=== PATIENT | male | born 1950 ===

== ENCOUNTER 2018-01-26 13:57 | Inpatient (IN) | payer OTHER ==
[2018-01-26] MEDS ORDERED: clonazePAM 1 MG TAB PO PRN (15:25)
--- NOTE | 2018-01-26 16:54 | GHP ---
POST ADMISSION PHYSICIAN EVALUATION AND REHABILITATION TREATMENT PLAN. DATE OF ADMISSION: 01/26/2018 DATE OF EVALUATION: 01/26/2018 REFERRING FACILITY: [facility]. IMPAIRMENT GROUP: [id number]. Etiologic diagnosis is other nontraumatic spinal cord dysfunction. DATE OF ONSET: 01/22/2018. REFERRING PHYSICIAN: Dr. Wallace. CONSULTING PHYSICIANS: He was managed by the Pulmonary and Critical Care Service. REHABILITATION DIAGNOSIS: Left C5 nerve palsy following cervical spine surgery. DATE OF SURGERY: 01/22/2018. HISTORY OF PRESENT ILLNESS: This patient came to [facility] for an elective C3-6 anterior cervical decompression and fusion, C3-T1 posterior cervical fusion, and C3-7 laminectomies for cervical stenosis and myelopathy. In the course of his surgery, he developed a left C5 nerve root palsy with weakness to the biceps and deltoid on the left. Otherwise, he had pain controlled. He was maintained with an elevated mean arterial pressure for a period of time to optimize perfusion to the spine and the injured nerve root. He was otherwise medically stable and ready for rehabilitation. STUDIES AND LABS: Postoperatively on 01/23/2018, BMP showed a slightly high glucose at 137, but was otherwise within normal limits. A CBC on 01/24/2018, showed slight anemia with a hemoglobin of 12.5 and a hematocrit of 38.4. He had an elevated white blood cell count at 12, that was predominantly neutrophils at 10.38. Platelet count was 187. Postoperative x-ray showed good alignment and intact hardware. PRECAUTIONS: He has orthopedic precautions for his neck. ACTIVE COMORBIDITIES: He has no tier 1, tier 2 or tier 3 comorbidities. PAST MEDICAL HISTORY: 1. Anxiety and depression. 2. Hypothyroidism. 3. Left pneumothorax in 1975. PAST SURGICAL HISTORY: 1. He has had a left hernia repair. 2. Bilateral knee replacements. PRESHOSPITAL MEDICATIONS: 1. Buspirone 30 mg p.o. b.i.d. 2. Levothyroxine 25 mcg p.o. daily. 3. Tamsulosin 0.4 mg p.o. daily. 4. Venlafaxine 75 mg p.o. twice daily. 5. Ibuprofen 400 mg p.o. q.6 hours p.r.n. 6. Metamucil at h.s. ADMISSION MEDICATIONS: 1. Acetaminophen 1000 mg p.o. q.8 hours p.r.n. 2. Buspirone 30 mg p.o. b.i.d. 3. Clonazepam 5 mg p.o. q.6 hours p.r.n. spasms. 4. Dexamethasone on a taper. 5. Levothyroxine 25 mcg p.o. daily. 6. Melatonin 6 mg p.o. q.h.s. 7. Oxycodone 5 to 10 mg p.o. q.4 hours p.r.n. 8. Senna/docusate 1 tab p.o. b.i.d. 9. Tamsulosin 0.4 mg p.o. daily. 10. Venlafaxine 150 mg p.o. b.i.d. ALLERGIES: There is an allergy listed to sulfa antibiotics. PSYCHOSOCIAL HISTORY: He is . He lives alone. There are 4 steps to enter the house and a flight of steps to reach his upstairs bedroom. He is an occasional cigarette smoker and he drinks 2-4 beers a day at home. FAMILY HISTORY: His mother had heart disease, atrial fibrillation, and a mitral valve replacement. His father had heart disease. REVIEW OF SYSTEMS: He reports his sleep has been interrupted by frequent urination, but that he gets back to sleep easily. His pain has been adequately controlled. He thinks he has some difficulty with swallowing water and sometimes coughs when he swallows water. He does not have dyspnea. There are no fevers or chills. There is no nausea, vomiting, or diarrhea. He has constipation for 3 days. He denies abdominal pain. He denies dysuria. He denies joint pain or joint swelling. He denies skin rash or skin breakdown. He is in good spirits. Otherwise a 10-point review of systems is negative. PHYSICAL EXAM: VITALS: Blood pressure is 145/91, heart rate is 63, respiratory rate is 14, oxygen saturation is 91% on room air. Temperature is 36.4 degrees centigrade. His weight is 85 kg for a body mass index of 26.9. GENERAL: This is a well-nourished, well-developed man, dressed in street clothes, lying in bed. Cooperative and in no acute distress. HEENT: Extraocular movements are intact. Pupils are equal, round, reactive to light. Mucous membranes are moist. Dentition is in good condition. NECK: Supple. HEART: There is a regular rate and rhythm with no murmurs, rubs, or gallops. LUNGS: He has subtle expiratory rhonchi in the right lower lobe. Otherwise, lungs are clear to auscultation bilaterally. ABDOMEN: Soft, nontender, nondistended with normoactive bowel sounds and no hepatosplenomegaly. EXTREMITIES: There is no cyanosis, clubbing, or edema. Radial and dorsalis pedis pulses are 2+ bilaterally. NEUROLOGIC: He is alert and oriented x3. Cranial nerves 2-12 grossly intact. His left upper extremity has marked weakness at the biceps and deltoid. He has triceps extension and hand produce department manager and wrist flexion and extension. Otherwise, his strength is 5/5 overall. Sensation is intact to light touch, though he has neuropathic tingling in his left arm and reduced sensation bilaterally in his fingers. Deep tendon reflexes are 2+ bilaterally at the biceps, patellar, and Achilles tendons. SKIN : His incisions are glued. Dressings are clean, except on the lower part of the dressing over his posterior incision where his SARAHI drain site is, there was slight serous drainage. There is no erythema and no purulence. QUINTERO IT LEVEL OF FUNCTION per the pre-admission screen: regarding diet, feeding , and swallowing:, he is on a regular diet. He needed assistance for grooming, dressing, and toileting. Bed mobility required moderate assist x2 people. Transfers required maximal assist of 2 people. He was using a front-wheeled walker. Seated balance was fair and his standing balance was poor. His endurance was fair. Gait was not tested as he was unsteady. Communication and cognition were considered to be normal. He had ataxia to the left lower extremity with decreased sensation and proprioception. On today's exam, there are no significant changes from the preadmission screen. IMPRESSION: This patient is a 67-year-old man who had an elective cervical spinal surgery with C3-6, ACDF, and C3-T1 PSF. He suffered an injury to the left C5 nerve root and has weakness of the left biceps and deltoid. He also has a proprioceptive deficit to the left lower extremity and so has debility requiring rehabilitation services. His goal is to complete a rehabilitation stay and then return home where he will have some assistance from his ex-, but otherwise will be living alone. For a safe discharge, he will need to achieve independence with eating and modified independence for activities of daily living and functional tasks. He will use a front-wheeled walker and be able to negotiate steps with the use of a cane. He will likely require assistance for shopping, driving, meal preparation, and household management. He will have therapy with Physical Therapy and Occupational Therapy, and I am adding Speech and Language Pathology due to his report of difficulty with swallowing. These therapies will happen for 1 hour each day on 5-7 days of the week. His expected duration of stay is 10-14 days. It is anticipated that upon discharge, he will continue to benefit from home health services including Nursing, a nurse's aide, Occupational Therapy, and Physical Therapy. PLAN: 1. Debility and left upper extremity weakness status post C3-6 ACDF and C3-T1 PSF with left C5 nerve root palsy. PT and OT to optimize mobility and activities of daily living toward the independent to modified level for discharge home. He will also need to be able to climb stairs. 2. Difficulty with swallowing thin liquids. He will have assessment per Speech and Language Pathology. 3. Pain management. Continue medications ordered out of the hospital with oxycodone 5-10 mg p.o. q.4 hours p.r.n. and acetaminophen 1000 mg p.o. q.8 hours p.r.n. Clonazepam has been prescribed for spasms. He reports he has not had spasms and I will discontinue the clonazepam. 4. He is on a dexamethasone taper to reduce postsurgical swelling. 5. Hypothyroidism, continue levothyroxine. 6. Anxiety and depression. Continue buspirone and venlafaxine. 7. Benign prostatic hypertrophy. Continue tamsulosin. Given his urinary frequency overnight, will check a postvoid residual to assure that he is emptying his bladder completely. 8. Prophylaxis. He has much reduced mobility. Continue enoxaparin at a prophylactic dose as ordered out of the hospital. This can be discontinued when his mobility improves. FOLLOWUP: He should see neurosurgeon, Dr. Wallace, in followup 2-3 weeks after his surgery, which would be as soon as 02/05/2018, or as late as 02/12/2018. These followups can happen after his discharge from inpatient rehabilitation. Per hospital notes, his primary care physician is Dr. Neymar Li MD. /[id number]/MODL MTDD
[2018-01-26] MEDS: DEXAMETHASONE 4 MG TAB PO SCH (18:10)
[2018-01-26] MEDS: oxyCODONE IR 5 MG TAB PO PRN ×2 (18:13→22:56)
[2018-01-26] MEDS: VENLAFAXINE XR 75 MG CAP PO SCH (21:05)
[2018-01-26] MEDS: MELATONIN 3 MG TAB PO PRN (21:05)
[2018-01-26] MEDS: ACETAMINOPHEN 500 MG TAB PO PRN (21:05)
[2018-01-26] MEDS: busPIRone 15 MG TAB PO SCH (21:05)
[2018-01-26] MEDS: PSYLLIUM METAMUCIL 1 PKT PO SCH (21:05)
[2018-01-26] MEDS: SENNOSIDES/DOCUSATE SODIUM TAB PO SCH (21:06)
[2018-01-27] MEDS: oxyCODONE IR 5 MG TAB PO PRN ×3 (00:07→21:09)
[2018-01-27] MEDS: LEVOTHYROXINE 25 MCG TAB PO SCH (05:42)
[2018-01-27] MEDS: SENNOSIDES/DOCUSATE SODIUM TAB PO SCH ×2 (08:39→21:09)
[2018-01-27] MEDS: DEXAMETHASONE 4 MG TAB PO SCH ×2 (08:39→17:51)
[2018-01-27] MEDS: ACETAMINOPHEN 500 MG TAB PO PRN (08:39)
[2018-01-27] MEDS: TAMSULOSIN HCL 0.4 MG CAP PO SCH (08:39)
[2018-01-27] MEDS: busPIRone 15 MG TAB PO SCH ×2 (08:40→21:08)
[2018-01-27] MEDS: VENLAFAXINE XR 75 MG CAP PO SCH ×2 (08:45→21:08)
[2018-01-27] MEDS ORDERED: Herbals/Supplements -Info Only PO SCH (09:00)
[2018-01-27] MEDS ORDERED: NS W/ 20 KCl/L 1,000 ML IV SCH (11:15)
--- NOTE | 2018-01-27 11:29 | PDOREHIP ---
Admission [facility] - Admission - 3 Day Assessment Period Admission Date/Day 1: 01/26/18 Day 2: 01/27/18 Day 3: 01/28/18 - Active Diagnoses Comorbidities and Co-existing Conditions at Admission: 18796. None of the Above - Skin Conditions Unhealed Pressure Ulcer (1 or more/Stage 1 or >)-Admission: 0. No
--- NOTE | 2018-01-27 11:29 | SOAPPROG ---
SOAP Progress Note Assessment/Plan: Assessment: Debility and left upper extremity weakness status post C3-6 ACDF and C3-T1 PSF with left C5 nerve palsy. PT and OT to optimize mobility and activities of daily living toward the independent to modified level for discharge home. He will also need to be able to climb stairs. Difficulty with swallowing thin liquids. He will have assessment per Speech and Language Pathology. Orthostatic hypotension. Possibly due to dehydration. Will hydrate with normal saline +20 mEq per L of potassium at 1:20 a.m. 5 cc an hour. Recheck orthostatics after several hours. * If no improvement he may have autonomic nervous system dysfunction due to compressive cervical myelopathy. Continue dexamethasone taper to reduce postsurgical swelling. Benign prostatic hypertrophy. Continue tamsulosin. Postvoid residuals have been measured at 100 - 185 cc, not high enough to consider catheterization. He might benefit from increasing tamsulosin but will await resolution of orthostatic hypotension. He may have bladder instability related to autonomic dysfunction from cervical compressive myelopathy. * Trial of condom catheter to improve sleep tonight 01/27/2018. Pain management. Continue medications ordered out of the hospital with oxycodone 5-10 mg p.o. q.4 hours p.r.n. and acetaminophen 1000 mg p.o. q.8 hours p.r.n. Clonazepam was prescribed for spasms was discontinued on admission to inpatient rehabilitation as he reported he has not had any spasms. Hypothyroidism, continue levothyroxine. Anxiety and depression. Continue buspirone and venlafaxine. Prophylaxis. He has much reduced mobility. Continue enoxaparin at a prophylactic dose as ordered out of the hospital. This can be discontinued when his mobility improves. FOLLOWUP: He should see neurosurgeon, Dr. Wallace, in followup 2-3 weeks after his surgery, which would be as soon as 02/05/2018, or as late as 02/12/2018. These followups can happen after his discharge from inpatient rehabilitation. Per hospital notes, his primary care physician is Dr. Neymar Li MD. 01/27/18 13:00 Subjective: [place] dizzy standing up with therapies today and was found to have significant orthostatic hypotension with 30 point drop in systolic blood pressure from sitting to standing. Supine blood pressure was checked subsequently at 135/87, with systolic 58 points higher than standing systolic of 77. He feels thirsty. Nursing has noted coughing with drinking fluids and has initiated thickened liquids. No fevers or chills, no dyspnea. Reports urinary frequency interfering with sleep last night. Objective: Vital Signs Temp Pulse Resp BP Pulse Ox 36.3 C 62 16 107/74 93 01/27/18 06:45 01/27/18 06:45 01/27/18 06:45 01/27/18 10:02 01/27/18 06:45 01/26/18 01/27/18 01/28/18 05:59 05:59 05:59 Intake Total 330 200 Output Total 850 350 Balance -520 -150 Physical Exam - Physical Exam General Appearance: WD/WN, alert, no apparent distress Respiratory: normal breath sounds, No crackles, No rhonchi, No wheezing Cardiac/Chest: regular rate, rhythm, No edema, No systolic murmur Skin: normal color, warm/dry Neuro/Psych: alert, normal mood/affect, oriented x 3, motor weakness (Left upper extremity) ICD10 Worksheet Patient Problems: Problems Problem Status Onset Cervical radiculopathy at C5 Acute H/O cervical spine surgery Acute - ICD10 Problem Qualifiers (1) H/O cervical spine surgery (2) Cervical radiculopathy at C5
[2018-01-27 17:10] LABS: PLATELET COUNT 233 10^3/uL (150-400)
[2018-01-27] MEDS: PSYLLIUM METAMUCIL 1 PKT PO SCH (21:08)
[2018-01-27] MEDS: MELATONIN 3 MG TAB PO PRN (21:08)
[2018-01-28] MEDS: LEVOTHYROXINE 25 MCG TAB PO SCH (05:46)
[2018-01-28] MEDS: oxyCODONE IR 5 MG TAB PO PRN ×2 (05:46→22:12)
[2018-01-28] MEDS: DEXAMETHASONE 2 MG TAB PO SCH ×2 (08:56→17:43)
[2018-01-28] MEDS: SENNOSIDES/DOCUSATE SODIUM TAB PO SCH ×2 (08:56→20:15)
[2018-01-28] MEDS: VENLAFAXINE XR 75 MG CAP PO SCH ×2 (08:56→20:15)
[2018-01-28] MEDS: busPIRone 15 MG TAB PO SCH ×2 (08:56→20:15)
[2018-01-28] MEDS: TAMSULOSIN HCL 0.4 MG CAP PO SCH (08:56)
[2018-01-28] MEDS: ACETAMINOPHEN 500 MG TAB PO PRN ×2 (09:00→17:43)
[2018-01-28] MEDS: PSYLLIUM METAMUCIL 1 PKT PO SCH (20:15)
[2018-01-28] MEDS: MELATONIN 3 MG TAB PO PRN (20:27)
[2018-01-28] MEDS: BISACODYL 10 MG SUPP PR PRN (20:44)
[2018-01-29] MEDS: oxyCODONE IR 5 MG TAB PO PRN ×4 (03:34→17:36)
[2018-01-29] MEDS: LEVOTHYROXINE 25 MCG TAB PO SCH (06:22)
[2018-01-29] MEDS: ACETAMINOPHEN 500 MG TAB PO PRN ×2 (07:36→17:30)
[2018-01-29] MEDS: SENNOSIDES/DOCUSATE SODIUM TAB PO SCH ×2 (08:22→21:10)
[2018-01-29] MEDS: busPIRone 15 MG TAB PO SCH ×2 (08:22→21:11)
[2018-01-29] MEDS: DEXAMETHASONE 2 MG TAB PO SCH ×2 (08:23→17:30)
[2018-01-29] MEDS: TAMSULOSIN HCL 0.4 MG CAP PO SCH (08:23)
[2018-01-29] MEDS: VENLAFAXINE XR 75 MG CAP PO SCH ×2 (08:23→21:10)
--- NOTE | 2018-01-29 13:16 | SOAPPROG ---
SOAP Progress Note Assessment/Plan: 67-year-old male status post a C3 through C6 ACDF and C3 through T1 PS after with Dr. Wallace at [facility] on 01/22/2018 with pre-surgery findings on MRI from 01/05/2018 of mild cord signal changes at C3 and C4 and normal postoperative x-rays on 01/25. Impairments in mobility and self-care with cervical level spinal cord injury, incomplete Today's update: Patient responding well to bowel program, likely has component of neurogenic bowel. Also, not retaining significant urine on tamsulosin, told he has a slightly enlarged prostate in the past, however could be related to chronic spinal cord injury due to cord compression. Given his comorbid orthostatic hypotension today, we are holding the tamsulosin starting tomorrow, also adding leg wraps to the abdominal binder and encouraging aggressive use to prevent orthostatic hypotension. I obtained records from [facility] where an MRI on 01/05/2018 showed mild cord signal changes at C3 and C4 and a normal postoperative x-ray of the C-spine on 01/25. The preoperative spinal cord changes are suggestive of a chronic spinal cord injury, likely a component of neurogenic bowel and bladder. His subjective reports of weakness and sensory changes in his right arm as well as some possibly increased neck pain seems to be counter to the therapists observation of improved function today in the right arm. None the less, we will obtain plain films of the hardware in his cervical spine to ensure stability. If he develops worsening symptoms or has more acute changes would consider CT or MRI of the cervical spine to assess for bleeding or fluid collection. A total of 35 min was spent on the floor in the care of the patient, the majority of which was spent in counseling and coordination of care regarding management strategies for orthostatic hypotension which is likely a result of chronic spinal cord injury and autonomic dysfunction. Additional issues reviewed without change today include ongoing dexamethasone taper, pain management, hypothyroidism, anxiety and depression, prophylaxis. Continue to monitor these issues. 01/29/18 13:12 01/29/18 13:18 Subjective: Chief complaint: Orthostatic hypotension No acute events overnight. Patient denies any new shortness of breath or chest pain, no new numbness, tingling, or weakness. Patient has had therapies impacted by orthostatic hypotension, sometimes severe requiring him to lie down after sitting up. Fluid resuscitation did not particularly help with this. Started doing abdominal binder and stockings. Patient has some neck pain that he feels might be worse, he feels subjectively like the right arm might be weaker and with some sensory changes compared to prior days. Therapy who worked with him today did not notice any changes in affect noticed improvement. He reports that he has a history of some mild BPH, but does not recall where he got that information. He has been responding well to suppositories for bowel movements. Objective: Vital Signs Temp Pulse Resp BP Pulse Ox 36.4 C 66 20 142/97 H 95 01/29/18 07:12 01/29/18 07:12 01/29/18 07:12 01/29/18 07:12 01/29/18 07:12 Laboratory Results 01/27/18 15:30 01/27/18 15:30 01/28/18 01/29/18 01/30/18 05:59 05:59 05:59 Intake Total 1400 1120 Output Total 2455 1225 Balance -1055 -105 Physical Exam - Physical Exam General Appearance: WD/WN, alert, no apparent distress EENT: No scleral icterus (R), No scleral icterus (L) Neck: other (C-spine collar in place, anterior bandage from a surgery) Respiratory: No respiratory distress, No accessory muscle use Skin: normal color, warm/dry, No cyanosis, No diaphoresis Extremities: non-tender, No pedal edema, No calf tenderness, No swelling, No Alessia's sign Neuro/Psych: alert, normal mood/affect (Strength in the right arm was 4/5 in clearance coordinator, 3/5 in elbow flexion, less than antigravity in the shoulder. He felt that sensory to light touch was impaired. Left arm was approximately less than 3 at the elbow flexor, shoulder, he had approximately 3 on clearance coordinator.) ICD10 Worksheet Patient Problems: Problems Problem Status Onset Cervical radiculopathy at C5 Acute H/O cervical spine surgery Acute
[2018-01-29] MEDS ORDERED: ZOLPIDEM TARTRATE 5 MG TAB PO PRN (14:49)
[2018-01-29] MEDS ORDERED: GADOBUTROL 10 ML VIAL IVP ONE (15:37)
[2018-01-29] MEDS ORDERED: traZODone 50 MG TAB PO SCH (21:00)
[2018-01-29] MEDS: PSYLLIUM METAMUCIL 1 PKT PO SCH (21:15)
[2018-01-29] MEDS: PSYLLIUM PO SCH (21:22)
[2018-01-30] MEDS: PSYLLIUM PO SCH ×2 (02:47→20:10)
[2018-01-30] MEDS: oxyCODONE IR 5 MG TAB PO PRN ×4 (03:33→20:09)
[2018-01-30] MEDS: LEVOTHYROXINE 25 MCG TAB PO SCH (05:07)
[2018-01-30] MEDS: ACETAMINOPHEN 500 MG TAB PO PRN ×2 (05:10→18:37)
[2018-01-30] MEDS: SENNOSIDES/DOCUSATE SODIUM TAB PO SCH ×2 (09:10→20:09)
[2018-01-30] MEDS: busPIRone 15 MG TAB PO SCH ×2 (09:10→20:07)
[2018-01-30] MEDS: DEXAMETHASONE 2 MG TAB PO SCH (09:10)
[2018-01-30] MEDS: VENLAFAXINE XR 75 MG CAP PO SCH ×2 (09:10→20:08)
--- NOTE | 2018-01-30 11:29 | SOAPPROG ---
SOAP Progress Note Assessment/Plan: Assessment: Debility and left upper extremity weakness status post C3-6 ACDF and C3-T1 PSF with left C5 nerve palsy. * Initial functional independence measure 76-80 on 01/30/2018. Ambulated 50 ft with a front wheeled walker, contact guard assist. Grooming and hygiene were done seated with minimal assist. Upper body dressing required maximal assist and lower body dressing required minimal assist shower transfer required total assist bathing required minimal assist toilet transfer was done with contact guard to minimal assist OT is concerned about possible right rotator cuff issues. Left upper extremity strength overall was a 2/5 for occupational therapy. * Continue PT and OT to optimize mobility and activities of daily living toward the independent to modified level for discharge home. He will also need to be able to climb stairs. Dysphagia. On dysphagia 1 diet texture with nectar thick liquids. * Ready for trials of dysphagia 2 texture. * Continue MANAGEMENT PROFESSIONAL. Question of dehydration on thickened liquids. Will provide IV hydration again today, 01/30/2018, but will subsequently discontinue his IV. Postoperative fluid collection posterior to cervical spine. Detected on MRI 03/2018 to evaluate increased right arm weakness. * Discussed with Neurosurgery KENDELL Campo, who reviewed images with neurosurgeon Dr. Carter, 01/29/2018. They do not believe that the fluid collection is causing spinal compression or any symptoms. No indication for intervention. Discussed with patient and ex-, 01/30/2018, who agree to not intervene. If it was causing symptoms would have Interventional Radiology drain it. * Still has multilevel moderate to severe bilateral neural foraminal stenosis. Orthostatic hypotension. * Did not improve after hydration. Likely due to autonomic dysfunction from spinal cord injury. * Improved with leg wraps and abdominal binder. Insomnia. Adverse reaction overnight 01/29/2018-01/30/2018 with worsening sleep and panic attacks. May have had excess serotonergic stimulation from venlafaxine; was on 75 mg twice daily prior to hospitalization and discharged on 150 mg twice daily; plus interaction with buspirone and trazodone. Zolpidem did not help. * Decrease venlafaxine to 75 mg twice daily starting 01/30/2018. Discontinue trazodone. * Initiate scheduled temazepam at 15 mg at bedtime starting 01/30/2018, and scheduled melatonin 6 mg at HS which had been ordered as p.r.n.. * Plan to change hypnotics to p.r.n. after several days once his sleep-wake cycle is normalized. Continue dexamethasone taper to reduce postsurgical swelling. Last dexamethasone dose is 01/31/2018. Sleep may improve simply with dexamethasone discontinuation. Benign prostatic hypertrophy verses bladder instability due to spinal cord injury. Continue tamsulosin. Postvoid residuals have been measured at 100 - 185 cc, not high enough to consider catheterization. * Trial of condom catheter to improve sleep. Pain management. Continue medications ordered out of the hospital with oxycodone 5-10 mg p.o. q.4 hours p.r.n. and acetaminophen 1000 mg p.o. q.8 hours p.r.n. Clonazepam was prescribed for spasms was discontinued on admission to inpatient rehabilitation as he reported he has not had any spasms. Hypothyroidism, continue levothyroxine. Anxiety and depression. Continue buspirone and venlafaxine. Prophylaxis. He has much reduced mobility. Continue enoxaparin at a prophylactic dose as ordered out of the hospital. This can be discontinued when his mobility improves. DISPOSITION: Attended staffing, 15 min. Discussed with case management, nursing, dietitian, PT, OT, SL P. Lives alone; has assistance from ex-. Few stairs to enter the home and 12 stairs to 2nd floor but he can live on single-level. Ex- is available to assist. Set tentative discharge date of 02/12/2018. FOLLOWUP: He should see neurosurgeon, Dr. Wallace, in followup 2-3 weeks after his surgery, which would be as soon as 02/05/2018, or as late as 02/12/2018. These followups can happen after his discharge from inpatient rehabilitation. Per hospital notes, his primary care physician is Dr. Neymar Li MD. 01/30/18 11:29 Subjective: Poor and limited sleep last night with irritability and worry. Pain did not interfere. He felt panicked. Refill his right arm is little stronger today than yesterday. Objective: Vital Signs Temp Pulse Resp BP Pulse Ox 36.6 C 91 17 144/86 H 90 L 01/30/18 06:46 01/30/18 06:46 01/30/18 06:46 01/30/18 06:46 01/30/18 06:46 Laboratory Results 01/27/18 15:30 01/27/18 15:30 01/29/18 01/30/18 01/31/18 05:59 05:59 05:59 Intake Total 1120 970 240 Output Total 1225 1550 Balance -105 -580 240 - Time Spent With Patient Time Spent With Patient: Greater than 60 min floor time today, including more than 50% of time in coordination of care during staffing meeting, and counseling patient and ex- . Physical Exam - Physical Exam General Appearance: WD/WN, alert, no apparent distress Respiratory: normal breath sounds, decreased breath sounds (Left lower lung field), crackles (Few, right lower lobe), No rhonchi, No wheezing Cardiac/Chest: regular rate, rhythm, No diastolic murmur, No systolic murmur Skin: normal color, warm/dry Neuro/Psych: alert, normal mood/affect, oriented x 3, motor weakness (Left upper extremity. Right upper extremity with deficit to forward extension at the shoulder.), speech abnormalities (Dysarthria, mild) ICD10 Worksheet Patient Problems: Problems Problem Status Onset Cervical radiculopathy at C5 Acute H/O cervical spine surgery Acute - ICD10 Problem Qualifiers (1) H/O cervical spine surgery (2) Cervical radiculopathy at C5
[2018-01-30] MEDS ORDERED: NS W/ 20 KCl/L 1,000 ML IV SCH (12:00)
[2018-01-30] MEDS: PSYLLIUM METAMUCIL 1 PKT PO SCH (20:07)
[2018-01-30] MEDS: MELATONIN 3 MG TAB PO SCH (20:08)
[2018-01-30] MEDS: TEMAZEPAM 15 MG CAP PO SCH (20:08)
[2018-01-30] MEDS ORDERED: TEMAZEPAM 15 MG CAP PO ONE (21:41)
[2018-01-31] MEDS: oxyCODONE IR 5 MG TAB PO PRN ×4 (00:40→22:38)
[2018-01-31] MEDS: LEVOTHYROXINE 25 MCG TAB PO SCH (04:49)
[2018-01-31] MEDS: SENNOSIDES/DOCUSATE SODIUM TAB PO SCH ×2 (08:01→21:01)
[2018-01-31] MEDS: busPIRone 15 MG TAB PO SCH ×2 (08:01→21:01)
[2018-01-31] MEDS: ACETAMINOPHEN 500 MG TAB PO PRN ×2 (08:01→21:40)
[2018-01-31] MEDS: DEXAMETHASONE 2 MG TAB PO SCH (08:02)
[2018-01-31] MEDS: VENLAFAXINE XR 75 MG CAP PO SCH ×2 (08:02→21:01)
--- NOTE | 2018-01-31 13:43 | SOAPPROG ---
SOAP Progress Note Assessment/Plan: Assessment: Debility and left upper extremity weakness status post C3-6 ACDF and C3-T1 PSF with left C5 nerve palsy. * Initial functional independence measure 76-80 on 01/30/2018. Ambulated 50 ft with a front wheeled walker, contact guard assist. Grooming and hygiene were done seated with minimal assist. Upper body dressing required maximal assist and lower body dressing required minimal assist shower transfer required total assist bathing required minimal assist toilet transfer was done with contact guard to minimal assist OT is concerned about possible right rotator cuff issues. Left upper extremity strength overall was a 2/5 for occupational therapy. * Continue PT and OT to optimize mobility and activities of daily living toward the independent to modified level for discharge home. He will also need to be able to climb stairs. Dysphagia. On dysphagia 1 diet texture with nectar thick liquids. * Ready for trials of dysphagia 2 texture. 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 Question of dehydration on thickened liquids. Will provide IV hydration again today, 01/30/2018, but will subsequently discontinue his IV. Postoperative fluid collection posterior to cervical spine. Detected on MRI 03/2018 to evaluate increased right arm weakness. * Discussed with Neurosurgery KENDELL Campo, who reviewed images with neurosurgeon Dr. Carter, 01/29/2018. They do not believe that the fluid collection is causing spinal compression or any symptoms. No indication for intervention. Discussed with patient and ex-, 01/30/2018, who agree to not intervene. If it was causing symptoms would have Interventional Radiology drain it. * Still has multilevel moderate to severe bilateral neural foraminal stenosis. Orthostatic hypotension. * Did not improve after hydration. Likely due to autonomic dysfunction from spinal cord injury. * Improved with leg wraps and abdominal binder. Insomnia. Adverse reaction overnight 01/29/2018-01/30/2018 with worsening sleep and panic attacks. May have had excess serotonergic stimulation from venlafaxine; was on 75 mg twice daily prior to hospitalization and discharged on 150 mg twice daily; plus interaction with buspirone and trazodone. Zolpidem did not help. * Decreased venlafaxine to 75 mg twice daily starting 01/30/2018. Discontinue trazodone. * Initiate scheduled temazepam at 15 mg at bedtime starting 01/30/2018, and scheduled melatonin 6 mg at HS which had been ordered as p.r.n.. Slept well after 2nd dose of temazepam. Continue scheduled temazepam at HS 15 mg, with a 2nd 15 mg dose p.r.n. * Plan to change hypnotics to p.r.n. after several days once his sleep-wake cycle is normalized. Continue dexamethasone taper to reduce postsurgical swelling. Last dexamethasone dose is 01/31/2018. Sleep may improve simply with dexamethasone discontinuation. Benign prostatic hypertrophy verses bladder instability due to spinal cord injury. Tamsulosin has been held due to orthostatic hypotension.. Postvoid residuals have been measured at 100 - 185 cc, not high enough to consider catheterization. * Trial of condom catheter to improve sleep. Pain management. Continue medications ordered out of the hospital with oxycodone 5-10 mg p.o. q.4 hours p.r.n. and acetaminophen 1000 mg p.o. q.8 hours p.r.n. Clonazepam was prescribed for spasms was discontinued on admission to inpatient rehabilitation as he reported he has not had any spasms. Hypothyroidism, continue levothyroxine. Anxiety and depression. Continue buspirone and venlafaxine. Prophylaxis. He has much reduced mobility. Continue enoxaparin at a prophylactic dose as ordered out of the hospital. This can be discontinued when his mobility improves. DISPOSITION: Lives alone; has assistance from ex-. Few stairs to enter the home and 12 stairs to 2nd floor but he can live on single-level. Ex- is available to assist. Set tentative discharge date of 02/12/2018. FOLLOWUP: He should see neurosurgeon, Dr. Wallace, in followup 2-3 weeks after his surgery, which would be as soon as 02/05/2018, or as late as 02/12/2018. These followups can happen after his discharge from inpatient rehabilitation. Per hospital notes, his primary care physician is Dr. Neymar Li MD. 01/31/18 13:37 Subjective: Slept well last night after 2nd dose of temazepam, and feels much better today. Not in pain. No cough or dyspnea. No fevers or chills. Reports arms or feeling stronger. Objective: Vital Signs Temp Pulse Resp BP Pulse Ox 36.6 C 73 16 115/79 90 L 01/31/18 08:00 01/31/18 08:00 01/31/18 08:00 01/31/18 08:00 01/31/18 08:00 Laboratory Results 01/27/18 15:30 01/27/18 15:30 01/30/18 01/31/18 02/01/18 05:59 05:59 05:59 Intake Total 970 980 Output Total 1550 725 150 Balance -580 255 -150 Physical Exam - Physical Exam General Appearance: WD/WN, alert, no apparent distress Respiratory: No respiratory distress, No accessory muscle use Skin: normal color, warm/dry, other (Incisions examined with nurse yesterday. Clean intact with minimal areas of serous drainage. No erythema.) Neuro/Psych: alert, normal mood/affect, oriented x 3 ICD10 Worksheet Patient Problems: Problems Problem Status Onset Cervical radiculopathy at C5 Acute H/O cervical spine surgery Acute - ICD10 Problem Qualifiers (1) H/O cervical spine surgery (2) Cervical radiculopathy at C5
[2018-01-31] MEDS: ENOXAPARIN 40 MG/0.4 ML SYR SC SCH (18:06)
[2018-01-31] MEDS: MELATONIN 3 MG TAB PO SCH (21:01)
[2018-01-31] MEDS: PSYLLIUM METAMUCIL 1 PKT PO SCH (21:02)
[2018-01-31] MEDS: TEMAZEPAM 15 MG CAP PO SCH (21:05)
[2018-01-31] MEDS: TEMAZEPAM 15 MG CAP PO PRN (22:38)
[2018-02-01] MEDS: oxyCODONE IR 5 MG TAB PO PRN ×5 (02:39→22:41)
[2018-02-01] MEDS: LEVOTHYROXINE 25 MCG TAB PO SCH (06:15)
[2018-02-01] MEDS: busPIRone 15 MG TAB PO SCH ×2 (10:02→21:27)
[2018-02-01] MEDS: SENNOSIDES/DOCUSATE SODIUM TAB PO SCH ×2 (10:03→21:27)
[2018-02-01] MEDS: VENLAFAXINE XR 75 MG CAP PO SCH ×2 (10:03→21:25)
[2018-02-01] MEDS: ENOXAPARIN 40 MG/0.4 ML SYR SC SCH (10:03)
--- NOTE | 2018-02-01 13:50 | SOAPPROG ---
SOAP Progress Note Assessment/Plan: Assessment: Debility and left upper extremity weakness status post C3-6 ACDF and C3-T1 PSF with left C5 nerve palsy. * Initial functional independence measure 68 on 01/30/2018. Ambulated 50 ft with a front wheeled walker, contact guard assist. Grooming and hygiene were done seated with minimal assist. Upper body dressing required maximal assist and lower body dressing required minimal assist shower transfer required total assist bathing required minimal assist toilet transfer was done with contact guard to minimal assist OT is concerned about possible right rotator cuff issues. Left upper extremity strength overall was a 2/5 for occupational therapy. * As of 02/01/2018, ambulating 150 ft several times a day. * Continue PT and OT to optimize mobility and activities of daily living toward the independent to modified level for discharge home. He will also need to be able to climb stairs. Dysphagia. On dysphagia 1 diet texture with nectar thick liquids. * Ready for trials of dysphagia 2 texture. 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 Question of dehydration on thickened liquids. Will provide IV hydration again today, 01/30/2018, but will subsequently discontinue his IV. Postoperative fluid collection posterior to cervical spine. Detected on MRI 03/2018 to evaluate increased right arm weakness. * Discussed with Neurosurgery KENDELL Campo, who reviewed images with neurosurgeon Dr. Carter, 01/29/2018. They do not believe that the fluid collection is causing spinal compression or any symptoms. No indication for intervention. Discussed with patient and ex-, 01/30/2018, who agree to not intervene. If it was causing symptoms would have Interventional Radiology drain it. * Still has multilevel moderate to severe bilateral neural foraminal stenosis. Orthostatic hypotension. * Did not improve after hydration. Likely due to autonomic dysfunction from spinal cord injury. * Improved with leg wraps and abdominal binder. Insomnia. Adverse reaction overnight 01/29/2018-01/30/2018 with worsening sleep and panic attacks. May have had excess serotonergic stimulation from venlafaxine; was on 75 mg twice daily prior to hospitalization and discharged on 150 mg twice daily; plus interaction with buspirone and trazodone. Zolpidem did not help. * Decreased venlafaxine to 75 mg twice daily starting 01/30/2018. Discontinue trazodone. * Initiate scheduled temazepam at 15 mg at bedtime starting 01/30/2018, and scheduled melatonin 6 mg at HS which had been ordered as p.r.n.. Slept well after 2nd dose of temazepam. Continue scheduled temazepam at HS 15 mg, with a 2nd 15 mg dose p.r.n. * Plan to change hypnotics to p.r.n. after several days once his sleep-wake cycle is normalized. Continue dexamethasone taper to reduce postsurgical swelling. Last dexamethasone dose is 01/31/2018. Sleep may improve simply with dexamethasone discontinuation. Benign prostatic hypertrophy verses bladder instability due to spinal cord injury. Tamsulosin has been held due to orthostatic hypotension.. Postvoid residuals have been measured at 100 - 185 cc, not high enough to consider catheterization. * Trial of condom catheter to improve sleep. Pain management. Continue medications ordered out of the hospital with oxycodone 5-10 mg p.o. q.4 hours p.r.n. and acetaminophen 1000 mg p.o. q.8 hours p.r.n. Clonazepam was prescribed for spasms was discontinued on admission to inpatient rehabilitation as he reported he has not had any spasms. Hypothyroidism, continue levothyroxine. Anxiety and depression. Continue buspirone and venlafaxine. Prophylaxis. Much improved mobility. Discontinue enoxaparin, starting 2017. DISPOSITION: Lives alone; has assistance from ex-. Few stairs to enter the home and 12 stairs to 2nd floor but he can live on single-level. Ex- is available to assist. Set tentative discharge date of 02/12/2018. FOLLOWUP: He should see neurosurgeon, Dr. Wallace, in followup 2-3 weeks after his surgery, which would be as soon as 02/05/2018, or as late as 02/12/2018. These followups can happen after his discharge from inpatient rehabilitation. Per hospital notes, his primary care physician is Dr. Neymar Li MD. 02/01/18 13:44 Subjective: Needed the 2nd dose of temazepam to attain sleep last night subsequently was unable to sleep past 6:00 a.m.. Otherwise without complaints. Ambulating more. Has not noticed orthostatic symptoms today. Objective: Vital Signs Temp Pulse Resp BP Pulse Ox 36.8 C 70 15 155/91 H 89 L 02/01/18 07:27 02/01/18 07:27 02/01/18 07:27 02/01/18 07:45 02/01/18 07:27 Laboratory Results 01/27/18 15:30 01/27/18 15:30 01/31/18 02/01/18 02/02/18 05:59 05:59 05:59 Intake Total 980 760 480 Output Total 725 200 50 Balance 255 560 430 Physical Exam - Physical Exam General Appearance: WD/WN, alert, no apparent distress Respiratory: No respiratory distress, No accessory muscle use Skin: normal color, warm/dry Neuro/Psych: alert, normal mood/affect, oriented x 3, motor weakness (Left upper extremity), speech abnormalities (Mild dysarthria) ICD10 Worksheet Patient Problems: Problems Problem Status Onset Cervical radiculopathy at C5 Acute H/O cervical spine surgery Acute - ICD10 Problem Qualifiers (1) H/O cervical spine surgery (2) Cervical radiculopathy at C5
[2018-02-01] MEDS: TEMAZEPAM 15 MG CAP PO SCH (21:26)
[2018-02-01] MEDS: MELATONIN 3 MG TAB PO SCH (21:26)
[2018-02-01] MEDS: PSYLLIUM METAMUCIL 1 PKT PO SCH (21:27)
[2018-02-01] MEDS: TEMAZEPAM 15 MG CAP PO PRN (22:41)
[2018-02-02] MEDS: ACETAMINOPHEN 500 MG TAB PO PRN (00:52)
[2018-02-02] MEDS: oxyCODONE IR 5 MG TAB PO PRN ×2 (03:11→21:27)
[2018-02-02] MEDS: VENLAFAXINE XR 75 MG CAP PO SCH ×2 (08:11→21:27)
[2018-02-02] MEDS: SENNOSIDES/DOCUSATE SODIUM TAB PO SCH ×2 (08:11→21:27)
[2018-02-02] MEDS: LEVOTHYROXINE 25 MCG TAB PO SCH (08:11)
[2018-02-02] MEDS: busPIRone 15 MG TAB PO SCH ×2 (08:11→21:27)
--- NOTE | 2018-02-02 15:27 | SOAPPROG ---
SOAP Progress Note Assessment/Plan: Assessment/Plan: Debility and left upper extremity weakness status post C3-6 ACDF and C3-T1 PSF with left C5 nerve palsy. * Initial functional independence measure 68 on 01/30/2018. Ambulated 50 ft with a front wheeled walker, contact guard assist. Grooming and hygiene were done seated with minimal assist. Upper body dressing required maximal assist and lower body dressing required minimal assist shower transfer required total assist bathing required minimal assist toilet transfer was done with contact guard to minimal assist OT is concerned about possible right rotator cuff issues. Left upper extremity strength overall was a 2/5 for occupational therapy. * As of 02/01/2018, ambulating 150 ft several times a day. * Continue PT and OT to optimize mobility and activities of daily living toward the independent to modified level for discharge home. He will also need to be able to climb stairs. Dysphagia. On dysphagia 1 diet texture with nectar thick liquids. * Ready for trials of dysphagia 2 texture. 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 Question of dehydration on thickened liquids. Will provide IV hydration again today, 01/30/2018, but will subsequently discontinue his IV. Postoperative fluid collection posterior to cervical spine. Detected on MRI 03/2018 to evaluate increased right arm weakness. * Discussed with Neurosurgery KENDELL Campo, who reviewed images with neurosurgeon Dr. Carter, 01/29/2018. They do not believe that the fluid collection is causing spinal compression or any symptoms. No indication for intervention. Discussed with patient and ex-, 01/30/2018, who agree to not intervene. If it was causing symptoms would have Interventional Radiology drain it. * Still has multilevel moderate to severe bilateral neural foraminal stenosis. Orthostatic hypotension. * Did not improve after hydration. Likely due to autonomic dysfunction from spinal cord injury. * Improved with leg wraps and abdominal binder. Insomnia. Adverse reaction overnight 01/29/2018-01/30/2018 with worsening sleep and panic attacks. May have had excess serotonergic stimulation from venlafaxine; was on 75 mg twice daily prior to hospitalization and discharged on 150 mg twice daily; plus interaction with buspirone and trazodone. Zolpidem did not help. * Decreased venlafaxine to 75 mg twice daily starting 01/30/2018. Discontinue trazodone. * Initiate scheduled temazepam at 15 mg at bedtime starting 01/30/2018, and scheduled melatonin 6 mg at HS which had been ordered as p.r.n.. Slept well after 2nd dose of temazepam. Continue scheduled temazepam at HS 15 mg, with a 2nd 15 mg dose p.r.n. * Plan to change hypnotics to p.r.n. after several days once his sleep-wake cycle is normalized. Continue dexamethasone taper to reduce postsurgical swelling. Last dexamethasone dose is 01/31/2018. Sleep may improve simply with dexamethasone discontinuation. Benign prostatic hypertrophy verses bladder instability due to spinal cord injury. Tamsulosin has been held due to orthostatic hypotension.. Postvoid residuals have been measured at 100 - 185 cc, not high enough to consider catheterization. * Trial of condom catheter to improve sleep. Pain management. Continue medications ordered out of the hospital with oxycodone 5-10 mg p.o. q.4 hours p.r.n. and acetaminophen 1000 mg p.o. q.8 hours p.r.n. Clonazepam was prescribed for spasms was discontinued on admission to inpatient rehabilitation as he reported he has not had any spasms. Hypothyroidism, continue levothyroxine. Anxiety and depression. Continue buspirone and venlafaxine. Prophylaxis. Much improved mobility. Discontinue enoxaparin, starting 2017. DISPOSITION: Lives alone; has assistance from ex-. Few stairs to enter the home and 12 stairs to 2nd floor but he can live on single-level. Ex- is available to assist. Set tentative discharge date of 02/12/2018. FOLLOWUP: He should see neurosurgeon, Dr. Wallace, in followup 2-3 weeks after his surgery, which would be as soon as 02/05/2018, or as late as 02/12/2018. These followups can happen after his discharge from inpatient rehabilitation. Per hospital notes, his primary care physician is Dr. Neymar Li MD. 02/02/18 15:24 Subjective: slept pretty well last night. Feeling more rested/more settled today. No new neurologic concerns. Objective: Vital Signs Temp Pulse Resp BP Pulse Ox 98.7 F 73 16 174/154 H 90 L 02/02/18 10:15 02/02/18 11:52 02/02/18 10:15 02/02/18 11:52 02/02/18 10:15 Laboratory Results 01/27/18 15:30 01/27/18 15:30 02/01/18 02/02/18 02/03/18 05:59 05:59 05:59 Intake Total 760 1000 Output Total 200 400 Balance 560 600 Physical Exam - Physical Exam General Appearance: alert, no apparent distress Respiratory: lungs clear, normal breath sounds Cardiac/Chest: regular rate, rhythm Abdomen: non-tender Back: Normal inspection Neuro/Psych: alert, normal mood/affect ICD10 Worksheet Patient Problems: Problems Problem Status Onset Cervical radiculopathy at C5 Acute H/O cervical spine surgery Acute
[2018-02-02] MEDS: MELATONIN 3 MG TAB PO SCH (21:27)
[2018-02-02] MEDS: TEMAZEPAM 15 MG CAP PO SCH (21:27)
[2018-02-02] MEDS: PSYLLIUM METAMUCIL 1 PKT PO SCH (21:28)
[2018-02-03] MEDS: oxyCODONE IR 5 MG TAB PO PRN ×3 (01:02→20:48)
[2018-02-03] MEDS: ACETAMINOPHEN 500 MG TAB PO PRN (03:29)
[2018-02-03] MEDS: LEVOTHYROXINE 25 MCG TAB PO SCH (06:23)
[2018-02-03] MEDS: SENNOSIDES/DOCUSATE SODIUM TAB PO SCH ×2 (07:10→20:48)
[2018-02-03] MEDS: VENLAFAXINE XR 75 MG CAP PO SCH ×2 (07:11→20:48)
[2018-02-03] MEDS: busPIRone 15 MG TAB PO SCH ×2 (07:11→20:48)
--- NOTE | 2018-02-03 12:57 | SOAPPROG ---
SOAP Progress Note Assessment/Plan: Assessment/Plan: Debility and left upper extremity weakness status post C3-6 ACDF and C3-T1 PSF with left C5 nerve palsy. * Initial functional independence measure 68 on 01/30/2018. Ambulated 50 ft with a front wheeled walker, contact guard assist. Grooming and hygiene were done seated with minimal assist. Upper body dressing required maximal assist and lower body dressing required minimal assist shower transfer required total assist bathing required minimal assist toilet transfer was done with contact guard to minimal assist OT is concerned about possible right rotator cuff issues. Left upper extremity strength overall was a 2/5 for occupational therapy. * As of 02/01/2018, ambulating 150 ft several times a day. * Continue PT and OT to optimize mobility and activities of daily living toward the independent to modified level for discharge home. He will also need to be able to climb stairs. Dysphagia. On dysphagia 1 diet texture with nectar thick liquids. * Ready for trials of dysphagia 2 texture. 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 Question of dehydration on thickened liquids Provided IV Hydration on 01/30/18, but subsequently discontinuee his IV. Postoperative fluid collection posterior to cervical spine. Detected on MRI 03/2018 to evaluate increased right arm weakness. * Discussed with Neurosurgery KENDELL Campo, who reviewed images with neurosurgeon Dr. Carter, 01/29/2018. They do not believe that the fluid collection is causing spinal compression or any symptoms. No indication for intervention. Discussed with patient and ex-, 01/30/2018, who agree to not intervene. If it was causing symptoms would have Interventional Radiology drain it. * Still has multilevel moderate to severe bilateral neural foraminal stenosis. Orthostatic hypotension. * Did not improve after hydration. Likely due to autonomic dysfunction from spinal cord injury. * Improved with leg wraps and abdominal binder. Insomnia. Adverse reaction overnight 01/29/2018-01/30/2018 with worsening sleep and panic attacks. May have had excess serotonergic stimulation from venlafaxine; was on 75 mg twice daily prior to hospitalization and discharged on 150 mg twice daily; plus interaction with buspirone and trazodone. Zolpidem did not help. * Decreased venlafaxine to 75 mg twice daily starting 01/30/2018. Discontinue trazodone. * Initiate scheduled temazepam at 15 mg at bedtime starting 01/30/2018, and scheduled melatonin 6 mg at HS which had been ordered as p.r.n. Improving overall. * Plan to change hypnotics to p.r.n. after several days once his sleep-wake cycle is normalized. Continue dexamethasone taper to reduce postsurgical swelling. Last dexamethasone dose is 01/31/2018. Sleep may improve simply with dexamethasone discontinuation. Benign prostatic hypertrophy verses bladder instability due to spinal cord injury. Tamsulosin has been held due to orthostatic hypotension. Postvoid residuals have been measured at 100 - 185 cc, not high enough to consider catheterization. * Trial of condom catheter to improve sleep. Pain management. Continue medications ordered out of the hospital with oxycodone 5-10 mg p.o. q.4 hours p.r.n. and acetaminophen 1000 mg p.o. q.8 hours p.r.n. Clonazepam was prescribed for spasms was discontinued on admission to inpatient rehabilitation as he reported he has not had any spasms. Hypothyroidism, continue levothyroxine. Anxiety and depression. Continue buspirone and venlafaxine. Prophylaxis. Much improved mobility. Discontinue enoxaparin, starting 2017. DISPOSITION: Lives alone; has assistance from ex-. Few stairs to enter the home and 12 stairs to 2nd floor but he can live on single-level. Ex- is available to assist. Set tentative discharge date of 02/12/2018. FOLLOWUP: He should see neurosurgeon, Dr. Wallace, in followup 2-3 weeks after his surgery, which would be as soon as 02/05/2018, or as late as 02/12/2018. These followups can happen after his discharge from inpatient rehabilitation. Per hospital notes, his primary care physician is Dr. Neymar Li MD. Today's Plan: Doing well - still with some intermittent low bp's but seem to be managing better. Pain is pretty well controlled. We discussed his panic attacks -somewhat coming from feeling "claustrophobic with the neck brace/binder /franklin hose all on. We discussed how can try to eliminate these especially if laying in bed (at least for a minute) to help feel better. He reports these are better even over the last few days. 02/03/18 12:53 Subjective: Seen in the PT gym - doing better. no new concerns - we discussed the time frame of wearing the brace and what recovery looks like over time. Pt noticing some good changes. Really anxious to hopefully upgrade his diet at some point. NO CP, No SOB, having continent BM's. Objective: Vital Signs Temp Pulse Resp BP Pulse Ox 98.6 F 84 16 157/98 H 92 02/02/18 20:00 02/02/18 20:00 02/02/18 20:00 02/02/18 20:00 02/02/18 20:00 Laboratory Results 01/27/18 15:30 01/27/18 15:30 02/02/18 02/03/18 02/04/18 05:59 05:59 05:59 Intake Total 1000 950 208 Output Total 400 450 Balance 600 500 208 Physical Exam - Physical Exam General Appearance: alert, no apparent distress Respiratory: lungs clear, normal breath sounds Cardiac/Chest: regular rate, rhythm Abdomen: non-tender, soft Neuro/Psych: alert, normal mood/affect ICD10 Worksheet Patient Problems: Problems Problem Status Onset Cervical radiculopathy at C5 Acute H/O cervical spine surgery Acute
[2018-02-03] MEDS: PSYLLIUM METAMUCIL 1 PKT PO SCH (20:49)
[2018-02-03] MEDS: MELATONIN 3 MG TAB PO SCH (22:38)
[2018-02-03] MEDS: TEMAZEPAM 15 MG CAP PO SCH (22:38)
[2018-02-04] MEDS: oxyCODONE IR 5 MG TAB PO PRN ×3 (00:52→21:41)
[2018-02-04] MEDS: ACETAMINOPHEN 500 MG TAB PO PRN (03:54)
[2018-02-04] MEDS: LEVOTHYROXINE 25 MCG TAB PO SCH (06:29)
[2018-02-04] MEDS: VENLAFAXINE XR 75 MG CAP PO SCH ×2 (09:35→21:26)
[2018-02-04] MEDS: busPIRone 15 MG TAB PO SCH ×2 (09:36→21:27)
[2018-02-04] MEDS: SENNOSIDES/DOCUSATE SODIUM TAB PO SCH ×2 (09:36→21:26)
--- NOTE | 2018-02-04 15:11 | SOAPPROG ---
SOAP Progress Note Assessment/Plan: Assessment: Debility and left upper extremity weakness status post C3-6 ACDF and C3-T1 PSF with left C5 nerve palsy. * Initial functional independence measure 68 on 01/30/2018. Ambulated 50 ft with a front wheeled walker, contact guard assist. Grooming and hygiene were done seated with minimal assist. Upper body dressing required maximal assist and lower body dressing required minimal assist shower transfer required total assist bathing required minimal assist toilet transfer was done with contact guard to minimal assist OT is concerned about possible right rotator cuff issues. Left upper extremity strength overall was a 2/5 for occupational therapy. * As of 02/01/2018, ambulating 150 ft several times a day. * Continue PT and OT to optimize mobility and activities of daily living toward the independent to modified level for discharge home. He will also need to be able to climb stairs. Dysphagia. On dysphagia 2 diet texture with nectar thick liquids; advanced from dysphagia 1. * Continue NIGHT COORDINATOR. Orthostatic hypotension. * Did not improve after hydration. Likely due to autonomic dysfunction from spinal cord injury. * Improved with leg wraps and abdominal binder. Insomnia. Adverse reaction overnight 01/29/2018-01/30/2018 with worsening sleep and panic attacks. May have had excess serotonergic stimulation from venlafaxine; was on 75 mg twice daily prior to hospitalization and discharged on 150 mg twice daily; plus interaction with buspirone and trazodone. Zolpidem did not help. * Decreased venlafaxine to 75 mg twice daily starting 01/30/2018. Discontinue trazodone. * Initiate scheduled temazepam at 15 mg at bedtime starting 01/30/2018, and scheduled melatonin 6 mg at HS which had been ordered as p.r.n.. Slept well after 2nd dose of temazepam. Continue scheduled temazepam at HS 15 mg, with a 2nd 15 mg dose p.r.n. sleeping well and not needing the 2nd dose, as of 2017. * Plan to change hypnotics to p.r.n. after several days once his sleep-wake cycle is normalized. Pain management. Continue medications ordered out of the hospital with oxycodone 5-10 mg p.o. q.4 hours p.r.n. and acetaminophen 1000 mg p.o. q.8 hours p.r.n. Clonazepam was prescribed for spasms was discontinued on admission to inpatient rehabilitation as he reported he has not had any spasms. * Continues to use oxycodone 20-30 mg total per day in 2-3 doses, as of 2017. Question of dehydration on thickened liquids. * Had IV hydration x2, last on 01/30/2018. Orthostatic hypotension did not improve. * Appears to have adequate intake on I and O charting. Postoperative fluid collection posterior to cervical spine. Detected on MRI 03/2018 to evaluate increased right arm weakness. * Discussed with Neurosurgery KENDELL Campo, who reviewed images with neurosurgeon Dr. Carter, 01/29/2018. They do not believe that the fluid collection is causing spinal compression or any symptoms. No indication for intervention. Discussed with patient and ex-, 01/30/2018, who agree to not intervene. If it was causing symptoms would have Interventional Radiology drain it. * Still has multilevel moderate to severe bilateral neural foraminal stenosis. Continue dexamethasone taper to reduce postsurgical swelling. Last dexamethasone dose is 01/31/2018. Sleep may improve simply with dexamethasone discontinuation. Benign prostatic hypertrophy verses bladder instability due to spinal cord injury. Tamsulosin has been held due to orthostatic hypotension.. Postvoid residuals have been measured at 100 - 185 cc, not high enough to consider catheterization. * Trial of condom catheter to improve sleep. Hypothyroidism, continue levothyroxine. Anxiety and depression. Continue buspirone and venlafaxine. Prophylaxis. Much improved mobility. Discontinue enoxaparin, starting 2017. DISPOSITION: Lives alone; has assistance from ex-. Few stairs to enter the home and 12 stairs to 2nd floor but he can live on single-level. Ex- is available to assist. Set tentative discharge date of 02/12/2018. FOLLOWUP: He should see neurosurgeon, Dr. Wallace, in followup 2-3 weeks after his surgery, which would be as soon as 02/05/2018, or as late as 02/12/2018. These followups can happen after his discharge from inpatient rehabilitation. Per hospital notes, his primary care physician is Dr. Neymar Li MD. 02/04/18 15:04 Subjective: No complaints. Says he is trying to step later to get to sleep later, and has been able to sleep with a single dose of temazepam rather than requiring the 2nd dose later at night. Has some shoulder pain right neck and shoulder area; not interfering with sleep. Otherwise without complaint. Objective: Vital Signs Temp Pulse Resp BP Pulse Ox 36.4 C 65 18 114/71 92 02/04/18 08:00 02/04/18 08:00 02/03/18 19:55 02/04/18 08:00 02/03/18 19:55 Laboratory Results 01/27/18 15:30 01/27/18 15:30 02/03/18 02/04/18 02/05/18 05:59 05:59 05:59 Intake Total 950 1638 100 Output Total 450 200 Balance 500 1438 100 Physical Exam - Physical Exam General Appearance: WD/WN, alert, no apparent distress Respiratory: No respiratory distress, No accessory muscle use Skin: normal color, warm/dry Neuro/Psych: alert, normal mood/affect, oriented x 3 ICD10 Worksheet Patient Problems: Problems Problem Status Onset Cervical radiculopathy at C5 Acute H/O cervical spine surgery Acute - ICD10 Problem Qualifiers (1) H/O cervical spine surgery (2) Cervical radiculopathy at C5
[2018-02-04] MEDS: BISACODYL 10 MG SUPP PR PRN (18:15)
[2018-02-04] MEDS: MELATONIN 3 MG TAB PO SCH (21:26)
[2018-02-04] MEDS: TEMAZEPAM 15 MG CAP PO SCH (21:26)
[2018-02-04] MEDS: PSYLLIUM METAMUCIL 1 PKT PO SCH (21:30)
[2018-02-05] MEDS: oxyCODONE IR 5 MG TAB PO PRN ×3 (00:50→21:31)
[2018-02-05] MEDS: LEVOTHYROXINE 25 MCG TAB PO SCH (04:48)
[2018-02-05] MEDS: SENNOSIDES/DOCUSATE SODIUM TAB PO SCH ×2 (07:48→21:29)
[2018-02-05] MEDS: busPIRone 15 MG TAB PO SCH ×2 (07:48→21:29)
[2018-02-05] MEDS: VENLAFAXINE XR 75 MG CAP PO SCH ×2 (07:48→21:29)
[2018-02-05] MEDS ORDERED: BISACODYL 10 MG SUPP PR ONE ×2 (09:09→15:24)
[2018-02-05] MEDS ORDERED: ACETAMINOPHEN 500 MG TAB PO SCH (09:15)
--- NOTE | 2018-02-05 10:17 | SOAPPROG ---
SOAP Progress Note Assessment/Plan: 67-year-old male status post a C3 through C6 ACDF and C3 through T1 PS after with Dr. Wallace at [facility] on 01/22/2018 with pre-surgery findings on MRI from 01/05/2018 of mild cord signal changes at C3 and C4 and normal postoperative x-rays on 01/25. Impairments in mobility and self-care with cervical level spinal cord injury, incomplete. Neurogenic bowel and bladder. Today's update: Restarting Flomax for urinary hesitancy, monitor closely for worsening orthostasis. Continue abdominal binder and stockings. Also scheduling a suppository for regular bowel program, to happen daily. Discussed neurogenic bowel and bladder with the patient. Scheduled acetaminophen for nocturnal pain in his shoulders., also made temazepam available for a later dose for nighttime awakening. Explained that this is a challenging problem and will consider additional options as well. A total of 35 min was spent on the floor in the care of the patient, the majority of which was spent in counseling and coordination of care regarding management strategies for orthostatic hypotension which is likely a result of chronic spinal cord injury and autonomic dysfunction. Additional issues reviewed without change today include completed dexamethasone taper, hypothyroidism, anxiety and depression, prophylaxis. Continue to monitor these issues. 01/29/18 13:12 01/29/18 13:18 02/05/18 10:14 Subjective: Chief complaint: Urinary hesitancy and orthostatic hypotension No acute events overnight. Patient denies any new shortness of breath or chest pain, no new numbness, tingling, or weakness. Patient states that he has worse shoulder pain at night which will wake him at times. He would like to have some sleep medication available during that time as well. He is okay with modifications to his pain regimen in order to facilitate better sleep. He notes some urinary hesitancy that has been worse after stopping the Flomax. He is okay with keeping Flomax off or restarting it, aware that could affect his orthostatic hypotension. He also states he has been constipated, not having daily bowel programs, feels uncomfortable. Objective: Vital Signs Temp Pulse Resp BP Pulse Ox 36.4 C 71 18 151/91 H 91 L 02/05/18 07:55 02/05/18 07:55 02/05/18 07:55 02/05/18 07:55 02/05/18 07:55 Laboratory Results 01/27/18 15:30 01/27/18 15:30 02/04/18 02/05/18 02/06/18 05:59 05:59 05:59 Intake Total 1638 580 Output Total 200 Balance 1438 580 Physical Exam - Physical Exam General Appearance: WD/WN, alert, no apparent distress Neck: other (C-collar in place) Respiratory: normal breath sounds, No respiratory distress Cardiac/Chest: normal peripheral pulses, regular rate, rhythm, No edema Skin: normal color, warm/dry, No cyanosis, No diaphoresis Extremities: No pedal edema, No swelling Neuro/Psych: alert, normal mood/affect, other (Motor weakness in upper limbs) ICD10 Worksheet Patient Problems: Problems Problem Status Onset Cervical radiculopathy at C5 Acute H/O cervical spine surgery Acute
[2018-02-05] MEDS: TAMSULOSIN HCL 0.4 MG CAP PO SCH (11:50)
[2018-02-05] MEDS: ACETAMINOPHEN 500 MG TAB PO SCH ×2 (12:56→21:29)
[2018-02-05] MEDS: MELATONIN 3 MG TAB PO SCH (21:29)
[2018-02-05] MEDS: PSYLLIUM METAMUCIL 1 PKT PO SCH (21:29)
[2018-02-05] MEDS: TEMAZEPAM 15 MG CAP PO SCH (22:17)
[2018-02-05] MEDS: TEMAZEPAM 15 MG CAP PO PRN (22:58)
[2018-02-06] MEDS: oxyCODONE IR 5 MG TAB PO PRN ×3 (03:44→22:32)
[2018-02-06] MEDS: ACETAMINOPHEN 500 MG TAB PO SCH ×3 (07:26→22:32)
[2018-02-06] MEDS: LEVOTHYROXINE 25 MCG TAB PO SCH (07:27)
[2018-02-06] MEDS: TAMSULOSIN HCL 0.4 MG CAP PO SCH (08:36)
[2018-02-06] MEDS: VENLAFAXINE XR 75 MG CAP PO SCH ×2 (08:36→22:31)
[2018-02-06] MEDS: busPIRone 15 MG TAB PO SCH ×2 (08:36→22:31)
[2018-02-06] MEDS: SENNOSIDES/DOCUSATE SODIUM TAB PO SCH ×2 (08:36→22:32)
--- NOTE | 2018-02-06 13:44 | SOAPPROG ---
SOAP Progress Note Assessment/Plan: Assessment: Debility and left upper extremity weakness status post C3-6 ACDF and C3-T1 PSF with left C5 nerve palsy. * Initial functional independence measure 68 on 01/30/2018, improved to 85 as of 02/06/2018. Has ambulated 150 ft x 2 with a front wheeled walker, contact guard assist to standby assist. Still with orthostasis which increases fall risk. Upper body dressing requires moderate to maximal assist, lower body dressing requires contact guard to minimal assist. Toileting requires minimal assist. Transfers require contact guard to minimal assist. OT thinks shoulder weakness may have to do with rotator cuff injury as well as C-spine issues. * Continue PT and OT to optimize mobility and activities of daily living toward the independent to modified level for discharge home. He will also need to be able to climb stairs. Dysphagia. On dysphagia 2 diet texture with nectar thick liquids; advanced from dysphagia 1; advanced to dysphagia 3 diet with thin liquids on 02/05/2018.. * Continue WINDOWS SERVER ARCHITECT. Orthostatic hypotension. * Did not improve after hydration. Likely due to autonomic dysfunction from spinal cord injury. * Improved with leg wraps and abdominal binder. Insomnia. Adverse reaction overnight 01/29/2018-01/30/2018 with worsening sleep and panic attacks. May have had excess serotonergic stimulation from venlafaxine; was on 75 mg twice daily prior to hospitalization and discharged on 150 mg twice daily; plus interaction with buspirone and trazodone. Zolpidem did not help. * Decreased venlafaxine to 75 mg twice daily starting 01/30/2018. Discontinue trazodone. * Initiate scheduled temazepam at 15 mg at bedtime starting 01/30/2018, and scheduled melatonin 6 mg at HS which had been ordered as p.r.n.. Slept well after 2nd dose of temazepam. Continue scheduled temazepam at HS 15 mg, with a 2nd 15 mg dose p.r.n. sleeping well and not needing the 2nd dose, as of 2017. * Plan to change hypnotics to p.r.n. after several days once his sleep-wake cycle is normalized. Pain management. Continue medications ordered out of the hospital with oxycodone 5-10 mg p.o. q.4 hours p.r.n. and acetaminophen 1000 mg p.o. q.8 hours p.r.n. Clonazepam was prescribed for spasms was discontinued on admission to inpatient rehabilitation as he reported he has not had any spasms. * Continues to use oxycodone 20-30 mg total per day in 2-3 doses, as of 2017. Question of dehydration on thickened liquids. * Had IV hydration x2, last on 01/30/2018. Orthostatic hypotension did not improve. * Appears to have adequate intake on I and O charting. Postoperative fluid collection posterior to cervical spine. Detected on MRI 03/2018 to evaluate increased right arm weakness. * Discussed with Neurosurgery KENDELL Campo, who reviewed images with neurosurgeon Dr. Carter, 01/29/2018. They do not believe that the fluid collection is causing spinal compression or any symptoms. No indication for intervention. Discussed with patient and ex-, 01/30/2018, who agree to not intervene. If it was causing symptoms would have Interventional Radiology drain it. * Still has multilevel moderate to severe bilateral neural foraminal stenosis. Dexamethasone taper completed on 01/31/2018. Benign prostatic hypertrophy verses bladder instability due to spinal cord injury. * Much improved as of 02/06/2018, with restart of tamsulosin 02/05/2018. Hypothyroidism, continue levothyroxine. Anxiety and depression. Continue buspirone and venlafaxine. Prophylaxis. Much improved mobility. Discontinue enoxaparin, starting 2017. DISPOSITION: Attended staffing, 15 min. Discussed with case management, nursing, dietitian, PT, OT, WINDOWS SERVER ARCHITECT. Lives alone; has assistance from ex- and daughter. Few stairs to enter the home and 12 stairs to 2nd floor but he can live on single-level. Set tentative discharge date of 02/15/2018. FOLLOWUP: He should see neurosurgeon, Dr. Wallace, in followup 2-3 weeks after his surgery, which would be as soon as 02/05/2018, or as late as 02/12/2018. These followups can happen after his discharge from inpatient rehabilitation. Per hospital notes, his primary care physician is Dr. Neymar Li MD. 02/06/18 13:19 Subjective: No complaints. Feeling better. No orthostatic symptoms today. Slept well. No cough or dyspnea. Notes improved strength in his arms. Objective: Vital Signs Temp Pulse Resp BP Pulse Ox 36.3 C 79 18 128/75 H 90 L 02/06/18 08:30 02/06/18 08:30 02/06/18 08:30 02/06/18 08:30 02/06/18 08:30 Laboratory Results 01/27/18 15:30 01/27/18 15:30 02/05/18 02/06/18 02/07/18 05:59 05:59 05:59 Intake Total 580 4666 300 Balance 580 4666 300 - Time Spent With Patient Time Spent With Patient: Greater than 35 min floor time today, including more than 50% of time in coordination of care during staffing meeting, and counseling patient. Physical Exam - Physical Exam General Appearance: WD/WN, alert, no apparent distress Respiratory: normal breath sounds, No crackles, No rhonchi, No wheezing Cardiac/Chest: regular rate, rhythm, No edema, No diastolic murmur, No systolic murmur Abdomen: normal bowel sounds, non-tender, soft, No distended Neuro/Psych: alert, normal mood/affect, oriented x 3, motor weakness (Bilateral upper extremities. Has increased biceps activation now 3/5 on the left upper extremity. Bilateral shoulder weakness in anterior extension and abduction.) ICD10 Worksheet Patient Problems: Problems Problem Status Onset Cervical radiculopathy at C5 Acute H/O cervical spine surgery Acute - ICD10 Problem Qualifiers (1) H/O cervical spine surgery (2) Cervical radiculopathy at C5
[2018-02-06] MEDS: BISACODYL 10 MG SUPP PR SCH (18:29)
[2018-02-06] MEDS: TEMAZEPAM 15 MG CAP PO SCH (22:31)
[2018-02-06] MEDS: PSYLLIUM METAMUCIL 1 PKT PO SCH (22:32)
[2018-02-06] MEDS: MELATONIN 3 MG TAB PO SCH (22:32)
[2018-02-07] MEDS: oxyCODONE IR 5 MG TAB PO PRN ×2 (05:30→23:46)
[2018-02-07] MEDS: ACETAMINOPHEN 500 MG TAB PO SCH ×3 (05:30→21:52)
[2018-02-07] MEDS: LEVOTHYROXINE 25 MCG TAB PO SCH (05:30)
[2018-02-07] MEDS: BISACODYL 10 MG SUPP PR SCH ×2 (07:19→20:33)
[2018-02-07] MEDS: VENLAFAXINE XR 75 MG CAP PO SCH ×2 (09:41→21:52)
[2018-02-07] MEDS: TAMSULOSIN HCL 0.4 MG CAP PO SCH (09:41)
[2018-02-07] MEDS: busPIRone 15 MG TAB PO SCH ×2 (09:41→21:52)
[2018-02-07] MEDS: SENNOSIDES/DOCUSATE SODIUM TAB PO SCH ×2 (09:42→21:52)
--- NOTE | 2018-02-07 09:55 | SOAPPROG ---
SOAP Progress Note Assessment/Plan: 67-year-old male status post a C3 through C6 ACDF and C3 through T1 PS after with Dr. Wallace at [facility] on 01/22/2018 with pre-surgery findings on MRI from 01/05/2018 of mild cord signal changes at C3 and C4 and normal postoperative x-rays on 01/25. Impairments in mobility and self-care with cervical level spinal cord injury, incomplete. Neurogenic bowel and bladder. Today's update: Insomnia improved, urinary hesitancy improved on Flomax without increase in any lightheadedness or orthostasis. Continue leg wraps an abdominal binder, continue therapies. Going well. 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 Suppository not given today, will discuss with staff reason why it was not given. A total of 25 min was spent on the floor in the care of the patient, the majority of which was spent in counseling coordination of care regarding monitoring of neurogenic bowel and bladder, discussion about appropriate therapies to augment his formal OT Additional issues reviewed without change today include completed dexamethasone taper, hypothyroidism, anxiety and depression, prophylaxis, neurogenic bowel and bladder. Continue to monitor these issues. 01/29/18 13:12 01/29/18 13:18 02/05/18 10:14 02/07/18 09:52 02/07/18 09:56 Subjective: Chief complaint: Orthostatic hypotension and urinary hesitancy No acute events overnight. Patient denies any shortness of breath or chest pain , no new numbness, tingling, or weakness. Patient notes that things are going well, he is sleeping better, his urination is improved with the re-initiation of Flomax and he has not had any lightheadedness. Continues to use his abdominal binder and leg wraps. He states that therapy is going well. Frontal be bring in some painting supplies. He has no acute concerns today. Objective: Vital Signs Temp Pulse Resp BP Pulse Ox 36.4 C 70 16 123/70 H 92 02/07/18 07:12 02/07/18 07:12 02/07/18 07:12 02/07/18 07:12 02/07/18 07:12 Laboratory Results 01/27/18 15:30 01/27/18 15:30 02/06/18 02/07/18 02/08/18 05:59 05:59 05:59 Intake Total 3279 094 Balance 4664 979 Physical Exam - Physical Exam General Appearance: WD/WN, alert, no apparent distress EENT: No scleral icterus (R), No scleral icterus (L) Respiratory: No respiratory distress, No accessory muscle use Skin: normal color, warm/dry, No cyanosis, No diaphoresis Neuro/Psych: alert, normal mood/affect, other (Cervical collar in place. Still endorses weakness of his arms) ICD10 Worksheet Patient Problems: Problems Problem Status Onset Cervical radiculopathy at C5 Acute H/O cervical spine surgery Acute
[2018-02-07] MEDS: PSYLLIUM METAMUCIL 1 PKT PO SCH (21:52)
[2018-02-07] MEDS: TEMAZEPAM 15 MG CAP PO SCH (21:52)
[2018-02-07] MEDS: MELATONIN 3 MG TAB PO SCH (21:53)
[2018-02-07] MEDS: TEMAZEPAM 15 MG CAP PO PRN (23:46)
[2018-02-08] MEDS: oxyCODONE IR 5 MG TAB PO PRN ×2 (03:42→23:41)
[2018-02-08] MEDS: ACETAMINOPHEN 500 MG TAB PO SCH ×3 (04:37→21:26)
[2018-02-08] MEDS: LEVOTHYROXINE 25 MCG TAB PO SCH (04:37)
[2018-02-08] MEDS: busPIRone 15 MG TAB PO SCH ×2 (09:24→21:24)
[2018-02-08] MEDS: SENNOSIDES/DOCUSATE SODIUM TAB PO SCH ×2 (09:24→21:24)
[2018-02-08] MEDS: VENLAFAXINE XR 75 MG CAP PO SCH ×2 (09:24→21:24)
[2018-02-08] MEDS: TAMSULOSIN HCL 0.4 MG CAP PO SCH (09:24)
[2018-02-08] MEDS: BISACODYL 10 MG SUPP PR SCH (09:29)
[2018-02-08] MEDS ORDERED: POLYETHYLENE GLYCOL 3350 17 GM PKT PO PRN (15:14)
--- NOTE | 2018-02-08 15:19 | SOAPPROG ---
SOAP Progress Note Assessment/Plan: Assessment: Debility and left upper extremity weakness status post C3-6 ACDF and C3-T1 PSF with left C5 nerve palsy. * Initial functional independence measure 68 on 01/30/2018, improved to 85 as of 02/06/2018. Has ambulated 150 ft x 2 with a front wheeled walker, contact guard assist to standby assist. Still with orthostasis which increases fall risk. Upper body dressing requires moderate to maximal assist, lower body dressing requires contact guard to minimal assist. Toileting requires minimal assist. Transfers require contact guard to minimal assist. OT thinks shoulder weakness may have to do with rotator cuff injury as well as C-spine issues. * Continue PT and OT to optimize mobility and activities of daily living toward the independent to modified level for discharge home. He will also need to be able to climb stairs. Dysphagia. advanced to dysphagia 3 diet with thin liquids on 02/05/2018.. * Continue HANDLE TURNER. Orthostatic hypotension. * Did not improve after hydration. Likely due to autonomic dysfunction from spinal cord injury. * Improved with leg wraps and abdominal binder. Insomnia. Adverse reaction overnight 01/29/2018-01/30/2018 with worsening sleep and panic attacks. May have had excess serotonergic stimulation from venlafaxine; was on 75 mg twice daily prior to hospitalization and discharged on 150 mg twice daily; plus interaction with buspirone and trazodone. Zolpidem did not help. * Decreased venlafaxine to 75 mg twice daily starting 01/30/2018. Discontinue trazodone. * Initiate scheduled temazepam at 15 mg at bedtime starting 01/30/2018, and scheduled melatonin 6 mg at HS which had been ordered as p.r.n.. Slept well after 2nd dose of temazepam. Continue scheduled temazepam at HS 15 mg, with a 2nd 15 mg dose p.r.n. sleeping well and not needing the 2nd dose, as of 2017. * Plan to change hypnotics to p.r.n. after several days once his sleep-wake cycle is normalized. Pain management. Continue medications ordered out of the hospital with oxycodone 5-10 mg p.o. q.4 hours p.r.n. and acetaminophen 1000 mg p.o. q.8 hours p.r.n. Clonazepam was prescribed for spasms was discontinued on admission to inpatient rehabilitation as he reported he has not had any spasms. * Continues to use oxycodone 5 mg doses approximately twice per day as of 2017. Constipation. Gets psyllium at HS and senna twice daily. Add polyethylene glycol daily p.r.n. Encouraged him to have his family bring in food. Postoperative fluid collection posterior to cervical spine. Detected on MRI 03/2018 to evaluate increased right arm weakness. * Discussed with Neurosurgery KENDELL Campo, who reviewed images with neurosurgeon Dr. Carter, 01/29/2018. They do not believe that the fluid collection is causing spinal compression or any symptoms. No indication for intervention. Discussed with patient and ex-, 01/30/2018, who agree to not intervene. If it was causing symptoms would have Interventional Radiology drain it. * Still has multilevel moderate to severe bilateral neural foraminal stenosis. Dexamethasone taper completed on 01/31/2018. Benign prostatic hypertrophy verses bladder instability due to spinal cord injury. * Much improved as of 02/06/2018, with restart of tamsulosin 02/05/2018. Hypothyroidism, continue levothyroxine. Anxiety and depression. Continue buspirone and venlafaxine. Prophylaxis. Much improved mobility. Discontinue enoxaparin, starting 2017. DISPOSITION: Attended staffing, 15 min. Discussed with case management, nursing, dietitian, PT, OT, HANDLE TURNER. Lives alone; has assistance from ex- and daughter. Few stairs to enter the home and 12 stairs to 2nd floor but he can live on single-level. Set tentative discharge date of 02/15/2018. FOLLOWUP: He should see neurosurgeon, Dr. Wallace, in followup 2-3 weeks after his surgery, which would be as soon as 02/05/2018, or as late as 02/12/2018. These followups can happen after his discharge from inpatient rehabilitation. Per hospital notes, his primary care physician is Dr. Neymar Li MD. 02/06/18 13:19 02/08/18 15:16 Subjective: Complains of constipation. He thinks he does not get enough salad greens on hospital diet. Pain is improving but still using oxycodone about 2 times a day. Otherwise without complaints. No fevers or chills, no cough or dyspnea. Objective: Vital Signs Temp Pulse Resp BP Pulse Ox 36.4 C 63 16 140/82 H 91 L 02/08/18 06:43 02/08/18 06:43 02/08/18 06:43 02/08/18 06:43 02/08/18 06:43 Laboratory Results 01/27/18 15:30 01/27/18 15:30 02/07/18 02/08/18 02/09/18 05:59 05:59 05:59 Intake Total 640 620 240 Balance 640 620 240 Physical Exam - Physical Exam General Appearance: WD/WN, alert, no apparent distress Respiratory: normal breath sounds, No crackles, No rhonchi, No wheezing Cardiac/Chest: regular rate, rhythm, No edema, No diastolic murmur, No systolic murmur Skin: normal color, warm/dry Neuro/Psych: alert, normal mood/affect, oriented x 3 ICD10 Worksheet Patient Problems: Problems Problem Status Onset Cervical radiculopathy at C5 Acute H/O cervical spine surgery Acute - ICD10 Problem Qualifiers (1) H/O cervical spine surgery (2) Cervical radiculopathy at C5
[2018-02-08] MEDS: MELATONIN 3 MG TAB PO SCH (21:24)
[2018-02-08] MEDS: PSYLLIUM METAMUCIL 1 PKT PO SCH (21:25)
[2018-02-08] MEDS: TEMAZEPAM 15 MG CAP PO SCH (21:25)
[2018-02-08] MEDS: TEMAZEPAM 15 MG CAP PO PRN (23:41)
[2018-02-09] MEDS: oxyCODONE IR 5 MG TAB PO PRN ×2 (04:04→22:12)
[2018-02-09] MEDS: ACETAMINOPHEN 500 MG TAB PO SCH ×3 (06:30→21:29)
[2018-02-09] MEDS: BISACODYL 10 MG SUPP PR SCH (06:31)
[2018-02-09] MEDS: LEVOTHYROXINE 25 MCG TAB PO SCH (06:31)
[2018-02-09] MEDS: VENLAFAXINE XR 75 MG CAP PO SCH ×2 (08:18→21:31)
[2018-02-09] MEDS: TAMSULOSIN HCL 0.4 MG CAP PO SCH (08:18)
[2018-02-09] MEDS: busPIRone 15 MG TAB PO SCH ×2 (08:18→21:28)
[2018-02-09] MEDS: SENNOSIDES/DOCUSATE SODIUM TAB PO SCH ×2 (08:19→21:29)
--- NOTE | 2018-02-09 12:28 | HOSPPROG ---
Hospitalist Progress Note Assessment/Plan: Assessment: 67 yo M p/w C5 palsy c/b orthostatic hypotension, shoulder pain Plan: # C5 palsy. Ongoing bilat UE paresis L>R, patient is R hand dominant, continues to work on drawing/painting -cont w/ therapies # L shoulder pain. Acute on chronic, patient w/o significant rotator cuff pain on ROM but does appear to have limited ROM more suggestive of either chronic arthritis/frozen pathology or it is densely affected by his C5 palsy -PRN bengay + scheduled tylenol and PRN oxy IR # Dysphagia. D3d # Orthostatic hypotension. Likely 2/2 autonomic dysfunction from cord injury -SBP 100-140 at rest, cont binder/wraps # Constipation. Has had BM, cont on sched senokot/psyllium # BPH. Cont tamsulosin Diet. D3d PPx. SCDs Code. Full Dispo. Lives alone; has assistance from ex- and daughter. Few stairs to enter the home and 12 stairs to 2nd floor but he can live on single-level. Set tentative discharge date of 02/15/2018. Subjective: reports increase in L shoulder pain at night, had BM Objective: Vital Signs Temp Pulse Resp BP Pulse Ox 36.6 C 69 14 140/92 H 92 02/09/18 08:00 02/09/18 08:00 02/09/18 08:00 02/09/18 08:00 02/09/18 08:00 Laboratory Results 01/27/18 15:30 01/27/18 15:30 02/08/18 02/09/18 02/10/18 05:59 05:59 05:59 Intake Total 620 540 200 Balance 620 540 200 - Physical Exam Constitutional: no apparent distress, appears nourished, not in pain, No uncomfortable Cardiovascular: regular rate and rhythym, no murmur, rub, or gallop, No edema Respiratory: no respiratory distress, no rales or rhonchi, clear to auscultation Gastrointestinal: normoactive bowel sounds, soft, non-tender abdomen, no palpable masses, No distension Musculoskeletal: other (limited ROM L shoulder at 80 degrees abduction w/o significant pain, no sub-AC tenderness, active vs. passive ROM does not impact overall limitation in ROM) Neurologic: AAOx3, weakness (motor 3/5 proximal muscles bilat UE, 4/5 L machine sewer, 5/ 5 R machine sewer) Psychiatric: interacting appropriately, not anxious, not encephalopathic, thought process linear ICD10 Worksheet Patient Problems: Problems Problem Status Onset Cervical radiculopathy at C5 Acute H/O cervical spine surgery Acute
[2018-02-09] MEDS: METHYL SALICYLATE/MENTHOL OINTMENT TP PRN (14:32)
[2018-02-09] MEDS: TEMAZEPAM 15 MG CAP PO SCH (21:28)
[2018-02-09] MEDS: MELATONIN 3 MG TAB PO SCH (21:28)
[2018-02-09] MEDS: PSYLLIUM METAMUCIL 1 PKT PO SCH (21:28)
[2018-02-10] MEDS: TEMAZEPAM 15 MG CAP PO PRN (00:36)
[2018-02-10] MEDS: METHYL SALICYLATE/MENTHOL OINTMENT TP PRN (00:46)
[2018-02-10] MEDS: oxyCODONE IR 5 MG TAB PO PRN ×2 (02:43→21:05)
[2018-02-10] MEDS: LEVOTHYROXINE 25 MCG TAB PO SCH (06:25)
[2018-02-10] MEDS: ACETAMINOPHEN 500 MG TAB PO SCH ×3 (06:26→21:02)
[2018-02-10] MEDS: BISACODYL 10 MG SUPP PR SCH (06:31)
[2018-02-10] MEDS: TAMSULOSIN HCL 0.4 MG CAP PO SCH (08:52)
[2018-02-10] MEDS: VENLAFAXINE XR 75 MG CAP PO SCH ×2 (08:53→21:01)
[2018-02-10] MEDS: busPIRone 15 MG TAB PO SCH ×2 (08:53→21:01)
[2018-02-10] MEDS: SENNOSIDES/DOCUSATE SODIUM TAB PO SCH ×2 (08:53→21:02)
--- NOTE | 2018-02-10 14:24 | HOSPPROG ---
Hospitalist Progress Note Assessment/Plan: Assessment: 67 yo M p/w C5 palsy c/b orthostatic hypotension, shoulder pain Plan: # C5 palsy. Ongoing bilat UE paresis L>R, patient is R hand dominant, continues to work on drawing/painting -cont w/ therapies # L shoulder pain. Acute on chronic, patient w/o significant rotator cuff pain on ROM but does appear to have limited ROM more suggestive of either chronic arthritis/frozen pathology or it is densely affected by his C5 palsy -PRN bengay started 02/09 PM + scheduled tylenol and PRN oxy IR -recommended heat pad HS # Dysphagia. D3d # Orthostatic hypotension. Likely 2/2 autonomic dysfunction from cord injury -SBP 105-140 at rest, cont binder/wraps # Constipation. Has had BM, cont on sched senokot/psyllium # BPH. Cont tamsulosin # Suspected atelectasis. Bibasilar crackles, counseled him on IS use Diet. D3d PPx. SCDs Code. Full Dispo. Lives alone; has assistance from ex- and daughter. Few stairs to enter the home and 12 stairs to 2nd floor but he can live on single-level. Set tentative discharge date of 02/15/2018. Subjective: had ongoing pain o/n despite bengay, not using his IS, had BM, continues to work on his drawings Objective: Vital Signs Temp Pulse Resp BP Pulse Ox 36.5 C 71 12 133/90 H 92 02/10/18 07:17 02/10/18 07:17 02/10/18 07:17 02/10/18 07:17 02/10/18 07:17 Laboratory Results 01/27/18 15:30 01/27/18 15:30 02/09/18 02/10/18 02/11/18 05:59 05:59 05:59 Intake Total 540 1030 480 Balance 540 1030 480 - Physical Exam Constitutional: no apparent distress, appears nourished, not in pain, No uncomfortable Cardiovascular: regular rate and rhythym, no murmur, rub, or gallop, No edema Respiratory: no respiratory distress, no rales or rhonchi, clear to auscultation Gastrointestinal: normoactive bowel sounds, soft, non-tender abdomen, No guarding, No distension Neurologic: AAOx3, weakness (LUE 3/5 proximal, 4/5 distal; RUE 5/5 distal, 4/5 proximal; bilat LE 5/5 motor ), No facial droop Psychiatric: interacting appropriately, not anxious, not encephalopathic, thought process linear ICD10 Worksheet Patient Problems: Problems Problem Status Onset Cervical radiculopathy at C5 Acute H/O cervical spine surgery Acute
[2018-02-10] MEDS: TEMAZEPAM 15 MG CAP PO SCH (21:01)
[2018-02-10] MEDS: MELATONIN 3 MG TAB PO SCH (21:02)
[2018-02-10] MEDS: PSYLLIUM METAMUCIL 1 PKT PO SCH (21:24)
[2018-02-11] MEDS: oxyCODONE IR 5 MG TAB PO PRN ×2 (01:14→05:00)
[2018-02-11] MEDS: METHYL SALICYLATE/MENTHOL OINTMENT TP PRN (04:59)
[2018-02-11] MEDS: LEVOTHYROXINE 25 MCG TAB PO SCH (05:00)
[2018-02-11] MEDS: ACETAMINOPHEN 500 MG TAB PO SCH (05:00)
[2018-02-11] MEDS: BISACODYL 10 MG SUPP PR SCH (07:21)
[2018-02-11] MEDS: busPIRone 15 MG TAB PO SCH (08:19)
[2018-02-11] MEDS: SENNOSIDES/DOCUSATE SODIUM TAB PO SCH (08:19)
[2018-02-11] MEDS: TAMSULOSIN HCL 0.4 MG CAP PO SCH (08:20)
[2018-02-11] MEDS: VENLAFAXINE XR 75 MG CAP PO SCH (08:20)
--- NOTE | 2018-02-11 14:45 | PDOREHIP ---
Admission [facility] - Admission - 3 Day Assessment Period Admission Date/Day 1: 01/26/18 Day 2: 01/27/18 Day 3: 01/28/18 Discharge [facility] - Discharge - 3 Day Assessment Period 2 Days Prior to Anticipated Discharge Date: 02/13/18 1 Day Prior to Anticipated Discharge Date: 02/14/18 Anticipated Discharge Date: 02/15/18 - Discharge Skin Conditions Unhealed Pressure Ulcer (1 or more/Stage 1 or >)-Discharge: 0. No
--- NOTE | 2018-02-11 15:57 | GDS ---
ADMITTING DIAGNOSIS: Debility and left upper extremity weakness, status post C3 -6 anterior cervical decompression and fusion and C3-T1 posterior cervical fusion with a left C5 nerve palsy. DISCHARGE DIAGNOSES: 1. Debility and left upper extremity weakness, status post C3-6 anterior cervical decompression and fusion and C3-T1 posterior cervical fusion with a left C5 nerve palsy. 2. Dysphagia. 3. Orthostatic hypotension. 4. BPH. COMPLICATIONS: There were none. PROCEDURES: There were none. CONSULTATIONS: There were none. HISTORY/HOSPITAL COURSE: This patient was admitted to [facility] from [facility]. He had surgery there by Dr. Wallace. It was an elective C3-C6 anterior cervical decompression and fusion, C3-T1 posterior cervical fusion and C3-7 laminectomies for cervical stenosis and myelopathy. There was a C5 nerve root palsy that developed during his surgery with weakness, and he was left with weakness of the biceps and deltoid on the left. He did well in rehabilitation. Initial functional independence measure on 01/30, was 68, which is consistent with [facility] level of care. This improved to 85 as of 02/06/2018, which is consistent with assisted living level of care. He ambulated 150 feet or more with a front-wheeled walker and contact guard assist to standby assist. He was subsequently ambulating independently with his front wheeled walker. He was independent with bed mobility. He was able to climb and descend 6 steps using bilateral rails. He was able to do grooming and hygiene with modified independence using a device and only setup. He was able to dress with minimal assist for the upper and lower bodies using a dressing stick device. Toileting required standby assist and toilet transfers required standby assist. Regarding dysphagia, he advanced to a regular diet and nectar thick liquids. He had orthostatic hypotension, which did not improve with hydration. He reported that he had symptoms of orthostatic hypotension with lightheadedness if he stood up too fast prior to his surgery. It seemed possible that he had a spinal myelopathy prior to surgery causing autonomic dysfunction. On the rehabilitation unit he required thigh-high JENNIFER hose and an abdominal binder to minimize his symptoms which he still had occasionally and allow him to participate in therapies. He had insomnia. Trazodone was not helpful and likely had an interaction with venlafaxine as well as buspirone. Zolpidem did not help. He was treated with temazepam with 15 mg scheduled at bedtime and an additional 15 mg p.r.n. at bedtime. He was using the second dose on approximately half of the nights. He had adequate pain control with acetaminophen and oxycodone. Acetaminophen was scheduled at 1000 mg q.8 hours. He used a 5 mg dose of oxycodone approximately twice a day. On 01/29/2018, he was noted to have increased right arm weakness. He had an MRI of his C-spine done, which showed a postoperative fluid collection. This was discussed with Neurosurgery. They did not believe that it was causing any symptoms and there was no indication for intervention. His right upper extremity weakness subsequently appeared consistent with a chronic rotator cuff injury and he had gradual improvement. He had urinary frequency. He was on tamsulosin which was discontinued due to his finding of significant orthostatic hypotension and he had worsening nocturia. Tamsulosin was restarted without any exacerbation of orthostatic symptoms and with considerable improvement regarding his nocturia. DISCHARGE PLAN: Condition upon discharge is good. DISCHARGE DESTINATION: Home where he will have assistance from his ex- and daughter. ACTIVITIES: Ad miguelina as he is independent with ambulation with a front-wheeled walker, but he is needing supervision or more to negotiate steps. DIET: Regular with a regular texture and thin liquids. MEDICATIONS UPON DISCHARGE: 1. Acetaminophen 1000 mg p.o. q.8 hours p.r.n. 2. Buspirone 30 mg p.o. twice daily. 3. Levothyroxine 25 mcg p.o. daily. 4. Melatonin 6 mg p.o. at bedtime p.r.n. 5. Oxycodone 5 to 10 mg p.o. q.4 hours p.r.n., and he was given approximately a week supply with 21 tablets. 6. Polyethylene glycol. 7. Psyllium. 8. Senna/docusate. 9. Tamsulosin 0.4 mg p.o. daily. 10. Temazepam 15 mg p.o. at bedtime with an additional 15 mg p.o. at bedtime p.r.n. 11. Venlafaxine 75 mg p.o. twice daily. ISSUES TO BE ADDRESSED AT FOLLOW UP: 1. Functional status. Continue PT and OT at home. In particular, PT will help problem solve his need to climb stairs at home. 2. Orthostatic hypotension. He inquired as to whether he needed to continue to use the abdominal binder and JENNIFER hose. He was advised that he should find out on his own after he goes home, but that he may continue to need these in order to relieve his orthostatic symptoms. 3. Insomnia. He may well sleep better once he goes home. He was discharged with approximately a 2-week supply of the scheduled dose of temazepam plus several more days of the p.r.n. dose. 4. Pain management. He was discharged with approximately 7 day supply of oxycodone. He can follow up with his primary care provider regarding these issues including orthostatic hypotension, functional status at home, insomnia and pain management. 5. Likely BPH with urinary frequency was effectively managed with tamsulosin. 6. Status post major cervical spine surgery. He will follow up with neurosurgeon, Dr. Wallace, soon after discharge. Greater than 35 minutes were spent on this discharge including medication reconciliation, coordination of care, and counseling patient. Copy requested to: Nery Schmitt /[id number]/MODL [id number]
[2018-02-11 16:27] VITALS: BP 121/82
== END 2018-02-11 12:09 | disposition home health service (06) | DRG 74 ==
LOC: BREH 13:57
PROVIDERS: ADMIT Internal Medicine; ATTEND Internal Medicine
DX: G50.8 Other disorders of trigeminal nerve (principal); R13.10 Dysphagia, unspecified; Z98.1 Arthrodesis status; E03.9 Hypothyroidism, unspecified; Z96.653 Presence of artificial knee joint, bilateral; N40.1 Benign prostatic hyperplasia with lower urinary tract symptoms; R35.0 Frequency of micturition; F41.8 Other specified anxiety disorders; I95.1 Orthostatic hypotension; G47.00 Insomnia, unspecified
CPT/HCPCS: 92508-GN; 92526-GN; 92610-GN; 97110-GO; 97110-GP; 97112-GO; 97112-GP; 97116-GP; 97140-GO; 97161-GP; 97166-GO; 97530-GO; 97530-GP; 97535-GO; 99368-GP; A9585; J1650